=== PATIENT | male | born 1955 | race Caucasian/White ===

== ENCOUNTER 2018-06-14 06:01 | Day surgery (SDC) | payer BC, MEDICARE ==
[~2018-06-14] VITALS: Ht 180.3 cm; Wt 96.4 kg
[2018-06-14] VITALS (9 sets, daily range): BP systolic 125–149; BP diastolic 62–85; PULSE 72–101; TEMP 98.2–98.7
[2018-06-14] MEDS ORDERED: ASPIRIN 81M81 MG/TA2 PO (06:24)
[2018-06-14] MEDS ORDERED: MULTIPLE VITAMI1 TA5 PO (06:24)
[2018-06-14] MEDS ORDERED: VITAMIN D 1001000 IU PO (06:25)
--- NOTE | 2018-06-14 07:31 | NUR ---
Initial visit; Patient and his thanked [employer] for offering encouragemnent and prayer prior to his surgical procedure.
--- NOTE | 2018-06-14 11:05 | NUR ---
The patient arrived back to [facility] from the recovery room at this time. The patient appears nauseated and was given a cool washcloth for his forehead at this time. The patient has oxygen in place at 2L per nasal cannula. Post operative vital signs were started at this time. The patient has three bandaids to his abdomen that appear clean, dry and intact. The patient has scrotal support in place at this time. The patient agrees to try some sprite and saltine crackers at this time. The patient's was brought back to be at his bedside. Call light is within reach. Will continue to monitor the patient.
[2018-06-14] MEDS ORDERED: ROXICODONE 55 MG/TAB PO (11:13)
[2018-06-14] MEDS ORDERED: TYLENOL 500MG500 MG PO (11:13)
--- NOTE | 2018-06-14 11:20 | NUR ---
The patient appears to be tolerating sprite and crackers well and requests a second sprite at this time. The patient also requests to try some jello at this time. The patient's remains at his bedside. Will continue to monitor the patient.
--- NOTE | 2018-06-14 11:35 | NUR ---
The patient appears to be resting comfortably on the cart at this time. The patient has finished his jello and appeared to tolerate it well. The patient was weaned off his oxygen and appears to be tolerating room air well. The patient denies any further needs at this time. Will continue to monitor the patient.
--- NOTE | 2018-06-14 11:54 | NUR ---
The patient appears to be resting comfortably on the cart at this time. The patient requests to try some ice water at this time. The patient's vital signs appear stable. The patient denies wanting to try and ambulate to the bathroom at this time. The patient's remains at his bedside. Will continue to monitor the patient.
--- NOTE | 2018-06-14 12:20 | NUR ---
Resting and denies pain. Room air sats 89%. Placed on oxygen at 2L per nasal cannula. Allowed to rest.
--- NOTE | 2018-06-14 12:50 | NUR ---
Resting with eyes closed when not disturbed.
--- NOTE | 2018-06-14 13:50 | NUR ---
Continues to rest without complaints of pain. Remains on oxygen at 2L per nasal cannula.
--- NOTE | 2018-06-14 14:05 | NUR ---
Has emesis of 100cc's green bile returns. States that he immediately feels better. Zofran 4mg IV given to help prevent recurrence of nasuea.
--- NOTE | 2018-06-14 14:15 | NUR ---
Assisted up to the bathroom and tolerates activity well. Denies pain or further nasuea. Resturns to room and is resting without complaints.
--- NOTE | 2018-06-14 14:30 | NUR ---
Denies pain or further nausea. Tolerated glass of water. States he is ready to go home.
--- NOTE | 2018-06-14 14:40 | NUR ---
IV discontinued and given dismissal instructions for home cares and provided follow up appointment date and time. Given script for Oxycodone and instructed to take Tylenol 1000mg every six hours. Dresses self.
--- NOTE | 2018-06-14 14:47 | NUR ---
Patient dismissed to home per private vehicle driven by spouse and taken to the front door per wheelchair and assisted into car with instructions in hand and script for Oxycodone.
== END 2018-06-14 14:47 | disposition home or self-care (01) ==
LOC: SDCO 06:01
DX: K40.90 Unilateral inguinal hernia, without obstruction or gangrene, not specified as recurrent (principal); Z98.52 Vasectomy status; Z79.82 Long term (current) use of aspirin
CPT/HCPCS: C1781; J0690; J1100; J1170; J1885; J2405; J2704; J3010; J7120